=== PATIENT | female | born 1960 | race Caucasian/White ===

== ENCOUNTER → 2024-04-11 | Outpatient (CLI) | payer MEDICARE | END | disposition home or self-care (01) | LOC: LAB SHORT 16:32 → LAB 16:32 | DX: R39.15 Urgency of urination (principal) | CPT/HCPCS: 87086 ==

== ENCOUNTER 2025-08-16 06:33 | Day surgery (SDC) | payer MEDICARE ==
[2025-08-16] VITALS (20 sets, daily range): BP systolic 121–164; BP diastolic 75–124
[~2025-08-16] VITALS: Ht 162.6 cm; Wt 79.8 kg
[2025-08-16] MEDS ORDERED: SINEMET 25-1001 EAC1 PO (07:02)
[2025-08-16] MEDS ORDERED: Phentermine HCl30 MG PO (07:03)
--- NOTE | 2025-08-16 07:23 | NUR ---
History, Chart, Medications and Allergies reviewed before start of procedure.Lungs clear T/O to Auscultation. Pre-Op teaching done. Pt verbalizes understanding.
--- NOTE | 2025-08-16 07:43 | NUR ---
08/16/25 0743 Sylwia Lopez CONFIRMED AND REVIEWED H&P, MEDCICATIONS, ALLERGIES, MEDICAL HISTORY, RESPIRATORY HISTORY, VITAL SIGNS, 3-LEAD EKG, CONSENTS, AND PHYSICIAN ORDERS. PATIENT CONFIRMS NPO STATUS AND AGREES WITH SCHEDULED PROCEDURE. MONITOR INTACT WITH CONTINUOUS PULSE OXIMETRY, CAPNOGRAPHY, 3-LEAD EKG, INTERMITTENT BP. SUPPLEMENTAL O2 TO BE TITRATED THROUGHOUT PROCEDURE TO MAINTAIN O2 SATURATION ABOVE 90%. PATIENT DETERMINED TO BE ASA APPROPRIATE FOR PROPOFOL SEDATION PRIOR TO START OF PROCEDURE BY DR. RIVERS
--- NOTE | 2025-08-16 08:24 | NUR ---
PT DESAT 87%. 2L NC APPLIED.
--- NOTE | 2025-08-16 08:29 | NUR ---
PT SITTING UP. AWAKE. SATS INCREASED BACK TO 99%. NC REMOVED. SATS MAINTAIN >96%.
--- NOTE | 2025-08-16 08:47 | NUR ---
Discharge instructions reviewed with patient. Patient verbalizes understanding. Copy given to patient to take home. Patient States Post-Procedure ride home has been arranged. Discharged via wheelchair to private car for ride home.
== END 2025-08-16 08:48 | disposition home or self-care (01) ==
LOC: ORSCMMR 06:33 → ORD 07:30 → ORSCMMR 08:48
PROVIDERS: Internal Medicine Gastroenterology
PROC: 0DJD8ZZ Inspection of Lower Intestinal Tract, Via Natural or Artificial Opening Endoscopic (ICD-10-PCS; principal; 2025-08-16 07:30)
DX: Z12.11 Encounter for screening for malignant neoplasm of colon (principal); G20.A1 Parkinson's disease without dyskinesia, without mention of fluctuations; Z68.32 Body mass index [BMI] 32.0-32.9, adult; Z79.899 Other long term (current) drug therapy
CPT/HCPCS: J2704; J7120